=== PATIENT | male | born 1950 | race Caucasian/White ===

== ENCOUNTER 2019-08-29 23:15 | Emergency (ER) | payer MEDICARE, SELFPAY ==
--- NOTE | 2019-08-29 23:12 | ECG_ITS ---
APPROVED REPORT Exam: Resting ECG HR:150 bpm ECG Measurements Heart Rate 150 AXES QRSd 118 QRS 5 QT 348 T 153 QTc 549 <Conclusion> Undetermined rhythm-suspect atrial fibrillation Incomplete left bundle branch block Lateral ischemia/injury Abnormal ECG Electronically signed by : Emmanuel Villanueva, 08/30/2019 14:04:20
[2019-08-29 23:15] VITALS: BP 138/77; PULSE 95; RESP 19; TEMP 36.8; O2SAT 100; BMI 31.9
--- NOTE | 2019-08-29 23:31 | XR_ITS ---
PROCEDURE: XR CHEST PORTABLE CLINICAL HISTORY: chest pressure COMPARISON: CT ANGIO CHEST from 08/30/2019 XR CHEST PORTABLE from 08/30/2019 FINDINGS: Cardiomegaly with mild pulmonary venous congestion with atelectasis in the lung bases along with suspected interstitial edema in the lung bases. Small right pleural effusion. No acute bony abnormalities. IMPRESSION: CHF with small right effusion Dictated by: Luan Forrester MD 08/30/2019 08:30 Electronically signed by Luan Forrester MD in [place] 08/30/2019 08:30
--- NOTE | 2019-08-29 23:38 | PC.NURSE ---
attempted to call Dr. Atkins
[2019-08-29 23:40] LABS: Basophils # 0.1 K/mm3 (0-0.2); Basophils % 0.6 % (0.1-2.0); Eosinophils # 0.2 K/mm3 (0.0-0.4); Eosinophils % 1.6 % (0.1-12.0); Hematocrit 46.4 % (42.0-52.0); Hemoglobin 14.9 g/dL (14.1-18.0); Lymphocytes # 1.9 K/mm3 (0.7-4.5); Lymphocytes % 17.3 % (10-50); Mean Corpuscular HGB Conc 32.1 g/dL (31.8-35.4); Mean Corpuscular Hemoglobin 28.5 pg (27.0-31.2); Mean Corpuscular Volume 88.8 fl (80-94); Mean Platelet Volume 8.5 fl (7.4-10.4); Monocytes # 0.8 K/mm3 (0.1-1.0); Monocytes % 7.7 % (1.7-9.3); Neutrophils # 7.9 K/mm3 (1.8-7.8); Neutrophils % 72.7 % (37.0-80.0); Platelet Count 315 K/mm3 (142-424); Red Blood Count 5.22 M/mm3 (4.60-6.20); Red Cell Distribution Width 13.5 % (11.5-17.5); White Blood Count 10.9 K/mm3 (4.8-10.8)
--- NOTE | 2019-08-29 23:41 | [facility].EDSOB ---
ED Disposition Clinical Impression: Respiratory arrest, Non-STEMI (non-ST elevated myocardial infarction) Cardiac arrhythmia Qualifiers: Arrhythmia type: atrial flutter Atrial flutter type: unspecified Qualified Code(s): I48.92 - Unspecified atrial flutter Disposition: Xfer Short-Term Hosp Condition on Discharge: Critical Referrals: Provider,Referral, [Primary Care Provider] - - Critical Care Critical Care Time: Yes Attestation: On 08/29/19, the high probability of a clinically significant, sudden or life threatening deterioration of the following system(s) required my full and direct attention, intervention and personal management. The time I documented below is in addition to time spent performing reported procedures but includes the following listed in this critical care notation. Vital system(s) involved:: Respiratory Failure My critical care processes included: Assessment & monitoring of V/S, Initial and Re-exams, Data Review/Interpretation, Medication Orders and management, Documentation Medical Decision Making - Medical Records Medical records reviewed: Yes: I reviewed the patient's medical records. - Nathaniel Inquiry Pt receiving controlled substance: No Vital Signs: 08/29/19 23:15 08/29/19 23:53 Temperature 98.2 F Temperature Source Oral Pulse Rate [Left Radial] 95 H 99 H Respiratory Rate 19 22 Blood Pressure [Right Arm] 138/77 151/95 H Blood Pressure Mean [Right Arm] 97 113 Blood Pressure Source [Right Arm] Automatic Cuff Blood Pressure Position [Right Arm] Sitting 02 Sat by Pulse Oximetry 100 99 Oxygen Delivery Method Room Air Nasal Cannula Oxygen Flow Rate (LPM) 1 - Lab Data Lab results reviewed: Yes: I reviewed the patient's lab results. Lab Results 08/29/19 23:15: Troponin I 0.43 H 08/29/19 23:15: WBC 10.9 H, RBC 5.22, Hgb 14.9, Hct 46.4, MCV 88.8, MCH 28.5, MCHC 32.1, RDW 13.5, Plt Count 315, MPV 8.5, Neut % (Auto) 72.7, Lymph % (Auto) 17.3, [place] % (Auto) 7.7, Eos % (Auto) 1.6, Baso % (Auto) 0.6, Neut # (Auto) 7.9 H, Lymph # (Auto) 1.9, [place] # (Auto) 0.8, Eos # (Auto) 0.2, Baso # (Auto) 0.1 08/29/19 23:15: Sodium 136, Potassium 3.6, Chloride 98, Carbon Dioxide 29, Anion Gap 12.6, BUN 14, Creatinine 0.80, Estimated Creat Clear 91, Estimated GFR 95, Est GFR ( Amer) 115, Glucose 268 H, Calcium 9.1 08/29/19 23:15: Total Bilirubin 0.2, Direct Bilirubin 0.0, Conjugated Bilirubin 0.0, Indirect Bilirubin 0.2, Unconjugated Bilirubin 0.3, AST 30, ALT 27, Alkaline Phosphatase 70, Total Protein 6.1 L, Albumin 3.7 08/29/19 23:15: PT 10.3, INR 0.99, APTT 25.3 08/29/19 23:15: Lipase 98 08/29/19 23:15: Hemoglobin A1c 7.3 H 08/30/19 01:28: ABG pH 6.92 L*, ABG pCO2 76.1 H, ABG pO2 81.0, ABG HCO3 15.2 L, ABG Total CO2 17.5 L, ABG O2 Saturation 88 L, ABG Base Excess -17.5 L 08/30/19 01:53: ABG pH 7.00 L*, ABG pCO2 78.0 H, ABG pO2 148.1 H, ABG HCO3 18.6 L, ABG Total CO2 21.0 L, ABG O2 Saturation 98, ABG Base Excess -12.7 L Result diagrams: 08/29/19 23:15 08/29/19 23:15 Orders (Tests/Meds): ED MEDICATIONS Generic Name Dose Route Start Last Admin Trade Name Freq PRN Reason Stop Dose Admin Sodium Chloride 1,000 mls @ 999 mls/hr 08/29/19 23:45 Sod Chlor 0.9% 1000ml Bag IV 08/30/19 00:45 .Q1H1M DEONDRE Amiodarone HCl 900 mg/ 518 mls @ 33.3 mls/hr 08/30/19 00:30 08/30/19 01:45 Dextrose IV 08/30/19 16:03 33.3 mls/hr .[id number] DEONDRE Administration Sodium Chloride 8 ml 08/29/19 23:33 Sodium Chloride 0.9% 10ml Vial IV 09/28/19 23:32 NEEDED PRN dilute pepcid Discontinued Medications Generic Name Dose Route Start Last Admin Trade Name Freq PRN Reason Stop Dose Admin Famotidine 20 mg 08/29/19 23:33 08/29/19 23:42 Pepcid 20mg/2ml Vial IV 08/29/19 23:34 20 mg ONCE ONE Administration Amiodarone HCl 150 mg/ 103 mls @ 600 mls/hr 08/30/19 00:30 08/30/19 00:23 Dextrose IV 08/30/19 00:40 600 mls/hr ONCE ONE Administration Iohexol 100 ml 08/16
[2019-08-29 23:44] LABS: Anion Gap 12.6 mEq/L (5-15); Blood Urea Nitrogen 14 mg/dl (9-20); Calcium 9.1 mg/dl (8.4-10.2); Carbon Dioxide 29 mmol/L (22.0-30.0); Chloride 98 mmol/L (98-107); Creatinine Clearance Estimated 91 mL/min (50-200); Estimated Glomerular Filt Rate 95 ml/min (>60); GFR (African American) 115 ML/MIN (>60); Glucose 268 mg/dl (74-100); Potassium 3.6 mmoL/L (3.5-5.1); Sodium 136 mmol/L (136-145)
[2019-08-29 23:50] LABS: Activated Partial Thrombo Time 25.3 seconds (23.6-34.0); INR 0.99 (0.9-1.1); Prothrombin Time 10.3 seconds (9.4-11.8)
[2019-08-29 23:53] VITALS: BP 151/95; PULSE 99; RESP 22; O2SAT 99
[2019-08-29 23:54] LABS: Alanine Aminotransferase 27 U/L (12-78); Albumin Level 3.7 g/dl (3.5-5.0); Alkaline Phosphatase 70 U/L (38-126); Aspartate Amino Transferase 30 U/L (17-59); Bilirubin,Indirect 0.2 mg/dL (0.0-0.9); Bilirubin,Total 0.2 mg/dl (0.2-1.3); Bilirubin,Unconjugated 0.3 mg/dL (0.0-1.1); Total Protein,Serum 6.1 g/dl (6.3-8.2)
[2019-08-29 23:57] VITALS: BP 151/95; PULSE 100; RESP 22; O2SAT 98
[2019-08-29 23:57] LABS: Troponin I 0.43 ng/ml (0.00-0.034)
[2019-08-30] VITALS (15 sets, daily range): BP systolic 69–182; BP diastolic 46–89; PULSE 76–132; RESP 20–24; TEMP 36.2; O2SAT 72–100
--- NOTE | 2019-08-30 | XR_ITS ---
PROCEDURE: XR CHEST PORTABLE CLINICAL HISTORY: Respiratory failure, shortness of breath COMPARISON: No exams were available for comparison FINDINGS: There is cardiomegaly with pulmonary venous congestion and interstitial edema consistent with congestive heart failure. This has progressed. There is an endotracheal tube now present with the tip slightly high 6 cm above the [place] at the T2 IMPRESSION: Progression of congestive heart failure with interstitial edema. Endotracheal tube tip slightly high at the T2 level. The Dictated by: Luan Forrester MD 08/30/2019 09:10 Electronically signed by Luan Forrester MD in [facility] 08/30/2019 09:10
--- NOTE | 2019-08-30 00:04 | PC.NURSE ---
requested that RN go with pt to CT. supervisor silvering department present in the ED to go with pt.
--- NOTE | 2019-08-30 00:05 | CT_ITS ---
PROCEDURE: CT ABDOMEN PELVIS W CON CLINICAL INDICATION: abd pain Bloating, nausea, extreme shortness of breath chest COMPARISON: No exams were available for comparison TECHNIQUE: IV Contrast: 75ML OPTIRAY 350 Oral Contrast none Axial images obtained with sagittal and coronal reformats. All CT scans at the facility use one or more dose reduction, viz: automated exposure control, ma/kV adjustment per patient size (including targeted exams where dose is matched to indication, i.e. head), or iterative reconstruction technique. FINDINGS: There is mild diffuse hepatic steatosis. No focal liver lesion is evident. There is mild diffuse motion artifact which does somewhat obscure fine detail. The spleen, adrenal glands, pancreas, and kidneys have an unremarkable appearance. No intestinal obstruction or free air. No evidence of appendicitis or diverticulitis. No acute bony anomaly. There is fusion of the L1 and L2 vertebral bodies. There is some gluteal atrophy on the right of the gluteus medius and minimus IMPRESSION: No acute abdominal or pelvic findings Dictated by: Luan Forrester MD 08/30/2019 09:19 Electronically signed by Luan Forrester MD in [facility] 08/30/2019 09:19
--- NOTE | 2019-08-30 00:05 | PC.NURSE ---
Gabriel contacted to help warehouse sorter transport patient to CT
--- NOTE | 2019-08-30 00:05 | PC.NURSE ---
pharmacy paged per MD request for med dosing
--- NOTE | 2019-08-30 00:06 | CT_ITS ---
PROCEDURE: CT ANGIO CHEST CLINCIAL INDICATION: sob Shortness of breath, difficulty breathing COMPARISON: CT ABDOMEN PELVIS W CON from 08/30/2019 TECHNIQUE: IV Contrast: 70ML OPTIRAY 350 Axial images obtained with sagittal and coronal reformats. All CT scans at the facility use one or more dose reduction, viz: automated exposure control, ma/kV adjustment per patient size (including targeted exams where dose is matched to indication, i.e. head), or iterative reconstruction technique. FINDINGS: HEART AND MEDIASTINAL STRUCTURES: There is mild cardiomegaly. No obvious pericardial effusion. There is enlarged left atrium and left ventricle. Coronary artery calcifications are present. There is no evidence of pulmonary embolus. There is mild prominence of the central pulmonary arteries. There is a mild amount of gas in the esophagus which could be due to reflux. No evidence of aortic aneurysm LUNGS AND PLEURAL SPACES: There is diffuse interstitial edema with trace bilateral effusions. There is mild thickening of the medial aspect of the right minor fissure and may be due to small amount of fluid in the fissure. No lobar consolidation or collapse is evident. There is mild ground-glass opacity noted in the upper and lower lobes may be due to pulmonary edema. BONY STRUCTURES: No acute bony abnormalities apparent. UPPER ABDOMEN: Unremarkable. ADDITIONAL FINDINGS: No other significant abnormalities. IMPRESSION: 1. No evidence of pulmonary embolus. 2. Findings consistent with CHF with cardiomegaly, trace effusions, and interstitial edema. Dictated by: Luan Forrester MD 08/30/2019 09:15 Electronically signed by Luan Forrester MD in [facility] 08/30/2019 09:15
[2019-08-30 00:07] LABS: Hemoglobin A1C 7.3 % (4.0-6.0)
[2019-08-30 00:09] LABS: Lipase 98 U/L (23-300)
--- NOTE | 2019-08-30 00:14 | PC.NURSE ---
gee rn speaking with kayla in pharmacy
--- NOTE | 2019-08-30 00:15 | PC.NURSE ---
Called to ER to provide one on one care while being transported to ct. Patient alert, oriented, very restless, skin cool and moist to touch. c/o shortness of breath.Wet productive cough with white foamy sputum. O2 at 2 liters O2 sat 90-94 percent. Resp at 24 per minute. B/P 174/74 Heart rate 132 afib.
--- NOTE | 2019-08-30 00:23 | PC.NURSE ---
Addendum entered by Jennifer Burroughs RN 08/30/19 04:42: Original Note: Alert, oriented, skin cool and moist. resp 24 and labored, wet cough present, a fib rate 121 on monitor with wide QRS present. C/o pain to chest and shortness of breath. Md aware. New orders noted. #18 to RAC x 1 stick. one inch of nitro to chest wall. Amiodarone 150 mg bolus started to LAC. b/p 164/89. O2 on 2 liters per nasal canula o2 sat 90-93.
--- NOTE | 2019-08-30 00:26 | PC.NURSE ---
Transported to CT with cardiac monitoring. 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 amiodarone infusing to LAC.Patient very restless, c/o shortness of shortness of breath and cough. Denies any chest pain at this time.
--- NOTE | 2019-08-30 00:27 | PC.NURSE ---
pt being transported to [facility] per radio survey worker and laundry housekeeping aide via stretcher
--- NOTE | 2019-08-30 00:35 | PC.NURSE ---
Patient very restless. productive cough with white foamy sputum. B/p 143/78 heart rate 124, resp 24. Patient states he can't lay flat during ct. attempting to get up during scan. athletic monitor a fib/flutter. unable to obtain 02 sat due to patient moving. 02 at 2 liters. Diaphoretic, contiues to repeat I have to get up now.
--- NOTE | 2019-08-30 00:51 | PC.NURSE ---
pt back to the department
--- NOTE | 2019-08-30 00:52 | PC.NURSE ---
Return to ER from CT scan. Patient alert, oriented,continues to be restless, asking for water. Diaphoretic at this time. cardiac a fib rates 110. Unable to obtain B/P due to patient movement. Resp labored at 24.
--- NOTE | 2019-08-30 00:53 | PC.NURSE ---
pt continues to be very restless in bed. pt c/o soa with a room air SAT of 98
--- NOTE | 2019-08-30 00:55 | PC.NURSE ---
pt moved from bed 5 to room 1 due to patient condition
--- NOTE | 2019-08-30 00:55 | PC.NURSE ---
quality assurance monitor sinus rate in 70 s. Resp shallow and slow. Patient nonresponsive at this time. Dr. Gutierrez in room. 02 changed to 100 % non rebreather. Resp called to assist with intubation.
--- NOTE | 2019-08-30 01:07 | ECG_ITS ---
APPROVED REPORT Exam: Resting ECG HR:120 bpm ECG Measurements Heart Rate 120 AXES NH 238 P 30 QRSd 142 QRS -4 QT 384 T 111 QTc 542 <Conclusion> Probable atrial fibrillation Motion artifact Nonspecific intraventricular block T wave abnormality, consider lateral ischemia Abnormal ECG Electronically signed by : Emmanuel Villanueva, 08/30/2019 13:58:03
--- NOTE | 2019-08-30 01:10 | PC.NURSE ---
patient given Versed 2 mg per Ruby Muse RN. 02 sat 72%. Resp assisted per ambu-bag. youth nutritional monitor a fib, skin cool and wet. Dr. Gutierrez attempted x 1 to intubate.
--- NOTE | 2019-08-30 01:29 | PC.NURSE ---
ekg's sent to dr montero by
[2019-08-30 01:30] LABS: ABG Base Excess -17.5 mmol/L (-2.4-2.3); ABG HCO3 15.2 mmhg (22.0-26.0); ABG Oxygen Saturation 88 % (90-100); ABG TCO2 17.5 mmhg (23-27)
--- NOTE | 2019-08-30 01:30 | PC.NURSE ---
Patient intubated per Dr. Gutierrez,Vent setting per RT. Versed 2 mg given IV per Ruby Muse RN. Propofol drip started for sedation. skin cool and moist. associate veterinarian continues a fib/ flutter with wide QRS. Amiodarone gtt infusing to LAC at 33.3. [place] cath started per Elizabeth Kemp RN. small amount of clear yellow urine.
--- NOTE | 2019-08-30 01:44 | PC.NURSE ---
speaking to [facility]
[2019-08-30 01:56] LABS: ABG Base Excess -12.7 mmol/L (-2.4-2.3); ABG HCO3 18.6 mmhg (22.0-26.0); ABG Oxygen Saturation 98 % (90-100); ABG PO2 148.1 mmhg (80-100)
[2019-08-30 01:59] LABS: ABG PCO2 76.1 mmhg (35.0-45.0); ABG PH 6.92 mmol/L (7.35-7.45)
--- NOTE | 2019-08-30 02:16 | PC.NURSE ---
Addendum entered by Marizol Larios, JUDE 08/30/19 03:02: late entry- [facility] called back shortly to change bed assignment. [facility] Original Note: pt [facility]
[2019-08-30 02:21] LABS: Troponin I 6.98 ng/ml (0.00-0.034)
--- NOTE | 2019-08-30 03:00 | PC.NURSE ---
pt leaving department via stretcher with flight crew
--- NOTE | 2019-08-30 03:43 | PC.NURSE ---
Pt transferred to Flight crew for transfer to another facility.
== END 2019-08-30 03:02 | disposition short-term general hospital (02) ==
PROVIDERS: Emergency Provider Emergency Medicine
DX: I21.4 Non-ST elevation (NSTEMI) myocardial infarction (principal); R09.2 Respiratory arrest; I48.92 Unspecified atrial flutter; I49.9 Cardiac arrhythmia, unspecified; R73.9 Hyperglycemia, unspecified
CPT/HCPCS: 31500; 71045; 71275; 74177; 80048; 80076; 82803; 83036; 83690; 84484; 85025; 85610; 85730; 93005; 96365; 96367; 96375; 96376; 99285; J0282; J2405; J2704; J7060; Q9967